=== PATIENT | female | born 1965 | race Caucasian/White ===

== ENCOUNTER 2017-06-08 19:36 | Inpatient (IN) | payer OTHER ==
[~2017-06-08] VITALS: Ht 154.9 cm; Wt 105.2 kg
[~2017-06-08 19:36] MED LIST: APAP/HYDROCODON1 T13 PO; CAPTOPRIL50 MG PO; COL100 PO; LEVOTHYROXIN0.025 M2 PO; MAC100 PO
--- NOTE | 2017-06-08 19:45 | NUR ---
DIDIG COMPLETED. AND REVIWED BY
--- NOTE | 2017-06-08 20:01 | NUR ---
RECEIVED PT FROM TRIAGE WALK-IN FROM C/C OF CHEST PAIN X3 DAYS. PT STATES THAT SHE HAS 8/10 PRESSURE CHEST PAIN RADIATING TO THE LT ARM. ALSO THE PT C/O SWOLLEN LT ARM. LF ARM COMPARED TO THE RT ARM SHOWS DIFFERENCE IN SIZE. PT PLACED ON MONITOR. LT ARM IS SWOLLEN RED AND WARM. WILL CONTINUE TO MONITOR.
--- NOTE | 2017-06-08 20:36 | NUR ---
DR PAPPAS AT BEDSIDE FOR MSE
[2017-06-08 21:10] LABS: microscopic required? YES; urine erythrocyte TRACE (NEGATIVE)
[2017-06-08 21:11] LABS: BASOPHIL % 0.3 % (0-2); PLATELET COUNT 255 x10^3mcL (130-400)
[2017-06-08 21:12] LABS: RED CELL DISTRIBUTION WIDTH 14.8 % (11.5-14.5)
[2017-06-08 21:19] LABS: CARBON DIOXIDE 29.8 mmol/L (21-32); CHLORIDE SERUM 105 mmol/L (98-107); CREATININE SERUM 0.7 mg/dL (0.6-1.0); GFR1 > 60 mL/min; GLUCOSE SERUM 117 mg/dL (74-106); SODIUM SERUM 139 mmol/L (136-145)
[2017-06-08 21:24] LABS: ALBUMIN 3.7 g/dL (3.4-5.0); ALKALINE PHOSPHATASE 92 U/L (46-116); ALT/SGPT 28 U/L (14-59); AST/SGOT 14 U/L (15-37); BILIRUBIN TOTAL 0.2 mg/dL (0.20-1.00); CHOLESTEROL 159 mg/dL (<200); CHOLESTEROL/HDL RATIO 4.5; HDL CHOLESTEROL 35 mg/dL (40-60); LIPASE 253 IU/L (73-393); TOTAL PROTEIN, SERUM 7.8 g/dL (6.4-8.2); TRIGLYCERIDES 155 mg/dL (<150)
[2017-06-08 21:41] LABS: T3 TOTAL 1.24 ng/mL
[2017-06-08 21:51] LABS: FREE T4 0.92 ng/dL (0.76-1.46); FREE THYROXINE INDEX 2.9 ug/dL (1.4-4.5); T4(THYROXINE) 8.4 ug/dL (4.7-13.3)
[2017-06-08] MEDS ORDERED: VITAMIN-D1000 IU PO (22:04)
[2017-06-08] MEDS ORDERED: NEU300 PO (22:05)
[2017-06-08] MEDS ORDERED: D-20001 TAB PO (22:05)
--- NOTE | 2017-06-08 22:30 | NUR ---
REPORT GIVEN TO BETY FOR MST ADMIT. ALL QUESTIONS AND CONCERNS ADDRESSED.
[2017-06-08 22:59] VITALS: BP 146/68
--- NOTE | 2017-06-08 23:08 | NUR ---
RECEIVED PATIENT FROM ED VIA GUERNEY, PATIENT ALERT AND ORIENTED, TELE # 29 SR, IV ACCESS TO LAC WNL, NO C/O PAIN AT THIS TIME, C/O WEAKNESS AND SWELING TO JOS, ORIENTED PATIENT TO ROOM AND SURROUNDINGS, BED RAILS UP X 2, CALL LIGHT WITHIN REACH, WILL ENDORSE CARE TO PRIMARY NURSE GEETA RUFFIN
--- NOTE | 2017-06-08 23:14 | NUR ---
PATIENT AWAKE BREATHING EASY AND NONLABOR NO SIGN OF DISTRESS NOTED. WITH ADMISSION ORDERS AND TO CARRY OUT. CALL LIGHT WITHIN REACN. WILL CONTINUE TO MONITOR.
[2017-06-09] VITALS (7 sets, daily range): BP systolic 108–146; BP diastolic 48–76
--- NOTE | 2017-06-09 05:26 | NUR ---
SLEPT AT LONG INTERVALS, DENIES CHEST DISCOMFORT THE ENTIRE SHIFT. ALL NEEDS ATTENDED.
[2017-06-09 06:41] LABS: AMPHETAMINE QUAL UR NONE DETECTED (NEG <=1000)
--- NOTE | 2017-06-09 07:35 | NUR ---
PATIENT AWAKE/ALERT LAYING IN BED NO COMPLAINTS, TECH AT BEDSIDE PERFORM CAROTID ULTRASOUND AT THIS TIME. DENIES CP, IV INTACT WITH IVF INFUSING. CALL LIGHT WITHIN REACH.
--- NOTE | 2017-06-09 08:30 | NUR ---
DR. LOCKETT ROUND WITH MEDICAL TEAM AT THIS TIME, DISCUSS POC WITH PATIENT, CONT MONITOR TROPONIN AND CARDIO CONSULT. CT CERVICAL SPINE STILL NEED TO BE DONE. PATIENT STATE MILD CHEST PAIN. ALL DUE MEDS GIVEN. NEEDS ANTICIPATED.
--- NOTE | 2017-06-09 09:52 | NUR ---
PATIENT AMBULATE WITH PT IN THE HALLWAY. PER PT PATIENT A LITTLE BIT OFF BALANCE NEED WALKER OR CANE. BACK TO BED AND CALL LIGHT WITHIN REACH.
--- NOTE | 2017-06-09 11:32 | NUR ---
PATIENT LAYING IN BED NO DISTRESS NOTED, SURGICAL TECHNOLOGIST AT BEDSIDE PERFORM ECHOCARDIOGRAM; PT'S ( DONN ) AT BEDSIDE WANT TO KNOW WHAT GOING ON WITH PATIENT; EXPLAINING POC, CARDIO WORKUP, AND TX.
--- NOTE | 2017-06-09 12:48 | NUR ---
CT CALL TO INFORM WILL DELAY TEST FOR ABOUT AN HOUR; KEEP PATIENT NPO. WILL INFORM PATIENT.
--- NOTE | 2017-06-09 13:00 | NUR ---
DAVINA AT BEDSIDE DO DM TEACHING, PER PATIENT WILL ATTEND DM CLASS AFTER D/C.
[2017-06-09 14:07] LABS: FREE T4 0.99 ng/dL (0.76-1.46); T4(THYROXINE) 8.2 ug/dL (4.7-13.3)
[2017-06-09 14:16] LABS: T3 TOTAL 1.01 ng/mL
--- NOTE | 2017-06-09 14:29 | NUR ---
PATIENT OFF FLOOR TO CT VIA WC AT THIS TIME.
--- NOTE | 2017-06-09 14:37 | NUR ---
PATIENT BACK FROM CT, NO COMPLAINTS, DUE MEDS GIVEN. ASSISTING PATIENT WITH LATE LUNCH, WARM UP FOODS PER PATIENT REQUEST. NEEDS ATTENDED. INFORM PATIENT IV SALINE LOCK PER DOCTOR ORDER. CONT TO MONITOR.
--- NOTE | 2017-06-09 16:36 | NUR ---
PATIENT LAYING IN BED NO COMPLAINTS, FAMILY MEMBERS AT BEDSIDE, BS 117 NO COVERAGE NEEDED. CONT TO MONITOR.
--- NOTE | 2017-06-09 17:12 | NUR ---
PATIENT RESTING IN BED NO COMPLAINTS, DUE MEDS GIVEN. FAMILY MEMBERS REMAIN AT BEDSIDE. NEEDS ANTICIPATED.
--- NOTE | 2017-06-09 19:45 | NUR ---
PT SEEN, RESTING IN THE BED, ALERT AND ORIENTED, DENIES HEADACHE OR DIZZINESS, BREATHING EVEN AND UNLABORED, NO SOB, LUNG SOUNDS CLEAR, ON ROOM AIR WITH NO RESP DISTRESS NOTED, ON TELE#29 NSR, DENIES CHEST PAIN, PULSES PALPABLE, EDEMA NOTED TO RFA, GENERALIZED WEAKNESS, ABD OBESE AND SOFT WITH ACTIVE BS, NO BM AT THIS TIME, DENIES ABD PAIN, VOIDING FREELY, NO DISTRESS NOTED, WILL KEEP TO MONITOR.
[2017-06-10 05:21] VITALS: BP 107/49
--- NOTE | 2017-06-10 06:14 | NUR ---
PT ASLEEP BUT EASILY AROUSABLE, SLEPT MOST OF NIGHT, NO COMPLAINS OF CHEST PAIN SINCE BEGINNING OF SHIFT, ON TELE#29 NSR, NO DISTRESS NOTED, WILL KEEP TO MONITOR.
[2017-06-10 07:07] LABS: CARBON DIOXIDE 29.8 mmol/L (21-32); CHLORIDE SERUM 103 mmol/L (98-107); CREATININE SERUM 0.8 mg/dL (0.6-1.0); GFR1 > 60 mL/min; GLUCOSE SERUM 98 mg/dL (74-106); MAGNESIUM 1.9 mg/dL (1.8-2.4); PHOSPHOROUS 3.6 mg/dL (2.5-4.9); POTASSIUM SERUM 3.6 mmol/L (3.5-5.1); SODIUM SERUM 139 mmol/L (136-145)
[2017-06-10 07:28] LABS: PLATELET COUNT 234 x10^3mcL (130-400); RED CELL DISTRIBUTION WIDTH 14.5 % (11.5-14.5)
--- NOTE | 2017-06-10 07:30 | NUR ---
PT AWAKE A/O X4 ABLE TO MAKE NEEDS KNOWN, MOSTLY UKRAINIAN SPEAKING. TELE 29 PT DENIES CP. PULSES EQUAL BILATERAL. LUNGS CTA. BOWEL TONES ACTIVE IN ALL QUADS. SKIN IS CDI. PT DENIES PAIN AT THIS TIME. IV TO THE LAC PATENT AND INFUSING. PT IS CALM AND COOPERATIVE WITH CARE.
--- NOTE | 2017-06-10 09:46 | NUR ---
PT UP OOB WALKING, STRONG STEADY GAIT.
[2017-06-10 10:15] VITALS: BP 126/64
[2017-06-10 10:16] LABS: BAND NEUTROPHIL 0 % (0-10); BASOPHIL 0 % (0-2); MONOCYTE 7 % (0-7); SEGMENTED NEUTROPHILS 38 % (37-75)
[2017-06-10 10:17] LABS: PLATELET MORPHOLOGY GIANT PLATELET SEEN
[2017-06-10] MEDS ORDERED: MAC100 PO (11:38)
[2017-06-10] MEDS ORDERED: LAC PO (11:39)
[2017-06-10] MEDS ORDERED: FOS10 PO (11:44)
[2017-06-10] MEDS ORDERED: LIPI10 PO (11:46)
[2017-06-10 12:22] VITALS: BP 126/64
[2017-06-10] MEDS ORDERED: BLOOD GLUCOSE1 EACH MC (13:03)
--- NOTE | 2017-06-10 14:19 | NUR ---
PHYSICAL THERAPY DAILY NOTES CO-SIGN All documentation done by the Security Administrator for 06/10/17 has been reviewed. I agree with the documentation. Reviewed/Co-Signed by: Alissa Aguirre PT Documentation Done by: Carmen Altman, TOOL DESIGN CHECKER
--- NOTE | 2017-06-10 14:55 | NUR ---
DISCHARGE INSTRUCTIONS GIVEN TO PT INTERPETER [id number] USED, PT MADE AWARE OF FOLLOW UP APPT WITH PCP, AND DR COLUNGA INSTRUCTED PT TO FOLLOW UP WITH PCP TO GET STRESS TEST, PT AND FAMILY VERBALIZED UNDERSTANDING. IV DC'S CATHETERTIP INTACT. TELE CLEANED AND RETURNED TO MONITOR ROOM. ALL BELONGINGS TAKEN OFF THE FLOOR WITH PT. PT ACCOMPANIED OFF THE FLOOR TO LOBBY BY CALIBRATION TECHNICIAN. PT MADE AWARE THAT PRESCRIPTIONS SENT TO PHARMACY, AND TEACHING DONE, PT VERBALIZED UNDERSTANDING.
== END 2017-06-10 15:00 | disposition home or self-care (01) | DRG 48 ==
LOC: ED 19:36 → DU 21:57
PROVIDERS: Specialist; ADMIT Family Medicine
DX: G90.8 Other disorders of autonomic nervous system (principal); Z68.41 Body mass index [BMI] 40.0-44.9, adult; I10 Essential (primary) hypertension; M94.0 Chondrocostal junction syndrome [Tietze]; N39.0 Urinary tract infection, site not specified; E03.9 Hypothyroidism, unspecified; R73.03 Prediabetes; Z53.29 Procedure and treatment not carried out because of patient's decision for other reasons; Q89.2 Congenital malformations of other endocrine glands; E78.5 Hyperlipidemia, unspecified; M06.9 Rheumatoid arthritis, unspecified; E66.9 Obesity, unspecified; M81.0 Age-related osteoporosis without current pathological fracture; Z90.49 Acquired absence of other specified parts of digestive tract; Z79.899 Other long term (current) drug therapy; Z82.49 Family history of ischemic heart disease and other diseases of the circulatory system; Z80.9 Family history of malignant neoplasm, unspecified
CPT/HCPCS: 83880; 84439; 97110-GP; 97116-GP; 97530-GP; J0696; J7030; J7050; Q0092; Q9967

== ENCOUNTER 2020-10-09 09:58 | Emergency (ER) | payer OTHER ==
[~2020-10-09] VITALS: Ht 160 cm; Wt 101.2 kg
[~2020-10-09 09:58] MED LIST changes: +BLOOD GLUCOSE1 EACH MC; +D-20001 TAB PO; +FOS10 PO; +LAC PO; +LIPI10 PO; +NEU300 PO; +VITAMIN-D1000 IU PO
[2020-10-09 10:01] VITALS: Ht 160 cm; Wt 101.2 kg
[2020-10-09 11:32] LABS: CALCIUM 8.9 mg/dL (8.5-10.1); CARBON DIOXIDE 24.3 mmol/L (21-32); CHLORIDE SERUM 103 mmol/L (98-107); CREATININE SERUM 0.8 mg/dL (0.6-1.0); GFR1 > 60 mL/min; GLUCOSE SERUM 108 mg/dL (74-106); POTASSIUM SERUM 3.3 mmol/L (3.5-5.1); SODIUM SERUM 140 mmol/L (136-145)
[2020-10-09 11:36] LABS: ALBUMIN 3.4 g/dL (3.4-5.0); ALKALINE PHOSPHATASE 81 U/L (46-116); ALT/SGPT 40 U/L (14-59); AST/SGOT 37 U/L (15-37); LIPASE 209 IU/L (73-393); TOTAL PROTEIN, SERUM 8.2 g/dL (6.4-8.2)
[2020-10-09 11:46] LABS: BASOPHIL % 0.2 % (0-2); PLATELET COUNT 180 x10^3mcL (130-400); RED CELL DISTRIBUTION WIDTH 14.3 % (11.5-14.5)
[2020-10-09 13:44] VITALS: BP 118/66
== END 2020-10-09 13:44 | disposition home or self-care (01) ==
LOC: ED 09:58
PROVIDERS: Emergency Medicine
DX: U07.1 COVID-19 (principal); B34.9 Viral infection, unspecified; I10 Essential (primary) hypertension; M19.90 Unspecified osteoarthritis, unspecified site
CPT/HCPCS: J0696; J1885; J2405; J7030

== ENCOUNTER 2020-10-11 12:30 | Inpatient (IN) | payer OTHER ==
[~2020-10-11] VITALS: Ht 157.5 cm; Wt 105.2 kg
[2020-10-11 12:51] VITALS: Ht 157.5 cm; Wt 105.2 kg
--- NOTE | 2020-10-11 13:27 | NUR ---
PT BIB SELF FROM HOME C/O NAUSEA AND VOMITING, UNABLE TO EAT OR SLEEP WELL FOR 7 DAYS. PT STATES SHE HAD POSITIVE COVID JV NOTIFIED ON 10/09/20. DENIES ANY SOB, DENIES ANY CHEST PAIN. DENIES ANY OTHER SYMPTOMS AT THIS TIME. PT OXYGEN SATURATION AT 88% ON ROOM AIR, PT PLACED ON 3L NC, RT AT BEDSIDE WITH PT AT THIS TIME. PT RESPIRATIONS EVEN AND UNLABORED. PT ABLE TO SPEAK IN FULL SENTENCES. PT PLACED IN GOWN AND FULL CM. WILL CONTINUE TO MONITOR PATIENT.
[2020-10-11 13:53] LABS: CALCIUM 8.9 mg/dL (8.5-10.1); CARBON DIOXIDE 29.3 mmol/L (21-32); CHLORIDE SERUM 100 mmol/L (98-107); CREATININE SERUM 0.9 mg/dL (0.6-1.0); GFR1 > 60 mL/min; GLUCOSE SERUM 123 mg/dL (74-106); POTASSIUM SERUM 3.4 mmol/L (3.5-5.1); SODIUM SERUM 139 mmol/L (136-145)
[2020-10-11 13:58] LABS: PLATELET COUNT 196 x10^3mcL (130-400); RED CELL DISTRIBUTION WIDTH 14.1 % (11.5-14.5)
[2020-10-11 14:00] LABS: BASOPHIL % 0 % (0-2)
[2020-10-11 14:05] LABS: ALBUMIN 3.4 g/dL (3.4-5.0); ALKALINE PHOSPHATASE 80 U/L (46-116); ALT/SGPT 60 U/L (14-59); AST/SGOT 71 U/L (15-37); BILIRUBIN TOTAL 0.4 mg/dL (0.20-1.00); LACTIC DEHYDROGENASE (LDH) 286 U/L (100-190)
[2020-10-11 14:20] LABS: TOTAL PROTEIN, SERUM 8.6 g/dL (6.4-8.2)
[2020-10-11 14:40] LABS: C REACTIVE PROTEIN 31.5 mg/dL (<=0.9)
--- NOTE | 2020-10-11 14:44 | NUR ---
PT LAYING DOWN ON HER RIGHT SIDE, VSS. NO SOB, NO DISTRESS NOTED. PT STATES SHE HAS NO PAIN, PT STATES SHE STILL FELL ALITTLE NAUSEATED BUT BETTER THAN EARLIER. NO VOMITING NOTED. CALL LIGHT WITHIN REACH. WILL CONTINUE TO MONITOR PATIENT
[2020-10-11] MEDS ORDERED: AZITHROMYCIN1 GM PO (15:27)
[2020-10-11] MEDS ORDERED: AUGMENTIN 875-1 EACH PO (15:27)
--- NOTE | 2020-10-11 15:35 | NUR ---
REPORT CALLED TO MJ RUFFIN
--- NOTE | 2020-10-11 16:15 | NUR ---
RECIEVED PATIENT ON GURNEY, A/O X4, WITHOUT ANY SIGN OF DISTRESS. PATIENT WITH N/C @4L SPO2 93%. NON PRODUCTIVE COUGH OCCATIONALLY, TELE #[address]. PT DENIES ANY NAUSEA AND PAIN AFTER BEING MEDICATED AT THE ER. PT. VOIDS FREELY WITHOUT ANY AMBULATORY ASSISTANCE. SL NOTED IN RT HAND FLUSHED WITH 2ML OF NS PATENT NO INFILTRATION. PATIENT WAS ORIENTED ON ROOM ENVIRONMENT, CALL LIGHT WITHIN REACH SIDE RAIL X2 BED IN LOWEST POSITION AND LOCKED.
[2020-10-11 16:42] VITALS: BP 139/72
--- NOTE | 2020-10-11 20:00 | NUR ---
SEEN PATIENT IN BED WITH O2 4 LITER VIA N/C, TOLERATED WELL AT THIS MOMENT,NO DISTRESS, NO C/O PAIN AT THIS TIME. NEEDS BEING MET.
[2020-10-11 21:28] VITALS: BP 111/42
--- NOTE | 2020-10-11 23:08 | NUR ---
SPOKE TO DR DANIELS AT THE STATION , REPORT PATIENT'S CONDITION , HE VERBALLY ORDER OF CONVELESENCE PLASMA 1 UNIT AND START REMDESEVIR PO, ORDER PUT IN BY ELECTROMEDICAL SERVICE ENGINEER.
[2020-10-12 05:37] VITALS: BP 141/77
--- NOTE | 2020-10-12 06:00 | NUR ---
PATIET WANT SLEEPING PILL , WILL ENDORSE TO ONCOMING NURSE.
[2020-10-12 07:27] LABS: ALKALINE PHOSPHATASE 68 U/L (46-116); ALT/SGPT 58 U/L (14-59); AST/SGOT 52 U/L (15-37); BILIRUBIN TOTAL 0.3 mg/dL (0.20-1.00); CALCIUM 9.1 mg/dL (8.5-10.1); CARBON DIOXIDE 25.2 mmol/L (21-32); CHLORIDE SERUM 104 mmol/L (98-107); CREATININE SERUM 0.7 mg/dL (0.6-1.0); GFR1 > 60 mL/min; GLUCOSE SERUM 137 mg/dL (74-106); POTASSIUM SERUM 3.7 mmol/L (3.5-5.1); SODIUM SERUM 139 mmol/L (136-145); TOTAL PROTEIN, SERUM 7.5 g/dL (6.4-8.2)
[2020-10-12 07:33] LABS: ALBUMIN 2.8 g/dL (3.4-5.0)
[2020-10-12 07:34] VITALS: BP 136/68
[2020-10-12 09:24] LABS: BASOPHIL % 0.1 % (0-2); PLATELET COUNT 190 x10^3mcL (130-400); RED CELL DISTRIBUTION WIDTH 14.3 % (11.5-14.5)
--- NOTE | 2020-10-12 10:17 | NUR ---
RECEIVED REPORT FROM BEE PRODUCER RN. PT ASSESSED, AO X4 AND WOLOF SPEAKING. PT IS ON 4L O2 VIA NC WITH SOME SHORTNESS OF BREATH. CURRENTLY SATURATING AT93% AND RUNNING SINUS RYTHM @87 ON THE MONITOR. PT AWARE THAT SHE WILL GET A PLASMA TRANSFUSION SOMETIME TODAY. NO C/O PAIN. CALL LIGHT IS WITHIN REACH AND ABLE TO USE FOR ASSISTANCE. WILL CONTINUE TO MONITOR O2 CLOSELY THROUGHOUT THE SHIFT.
--- NOTE | 2020-10-12 11:50 | NUR ---
HERE AND MADE AWARE THAT PATIENT COVID+.
[2020-10-12 12:17] VITALS: BP 115/50
--- NOTE | 2020-10-12 14:29 | NUR ---
1. Recommend NA2G diet Recommendation provided to Dr. Shipley, and Dr. Shipley acknowledged.
--- NOTE | 2020-10-12 14:29 | NUR ---
Initial Nutrition Assessment: [address] 55F Nursing trigger: N/V/D > 3 days, Poor PO > 3 days Dx: COVID, PNA PMHx: HTN, Hyperlipidemia, Osteoarthritis, hypothyroidism PSHx: cholecystectomy Labs: (10/12) WBC: 15.2H, BG 137H, AST 52H, albumin 2.8L, (10/11) Ferritin 524.3H, CRP 31.5H, *no updated lipid panel Meds: Lovenox, Synthroid, Neurontin, Zofran Diet: Regular PO intake since admission: none noted Ht: 157.48cm/62in Wt: 105.233kg/231.5lbs BMI: 42.4 Bed scale: not accessible IBW: 50kg/110lbs %IBW: 210.5% ABW: 64kg UBW: unknown Age: 55 Food Allergies: none noted Edema: none noted Last BM: 10/11 Skin: skin intact Beto: 19 Per H and P (10/11), pt is a 55-year-old female with PMH of HTN, hypothyroid, HLD presents to ER with 1 week of nausea, vomiting, abdominal pain, body aches, nonproductive cough, SOB, MCCLOUD and fevers. She was seen in ER 10/09/2020 and had tested positive for COIVID. She had CT abd/pelvis which showed streaky left lung opacities (atelectasis vs pneumonia), fatty infiltration of the liver, no bowel obstruction, obstructive uropathy, free air, free fluid, or diverticulitis. She received IVF, IV ketorolac and Zofran and was discharged home. She had persistent symptoms and returned to ER. In ER, BP 124/65, HR 72, temp 101.6 F. Pt was admitted with dx: COVID 19 infection, multifocal PNA, Acute hypoxic respiratory failure, abd pain, nausea and vomiting 2/2 COVID 19, obesity, HTN, hyperlipidemia RD Note (10/12/2020) Pt was in isolation d/t COVID infection. Per pt's RN, pt was tolerating diet with good appetite and no GI distress or chewing/swallowing difficulty. RN also mentioned that pt had most of of her breakfast this morning, and pt's PO intake was estimated to be 90%. Problem with: N/V/D/C: none per RN Problems with: Chewing: Swallowing: none per RN Current appetite: good per RN Recent wt change: unknown %wt change: unknown Vitamin/Supplement use: unknown Special diet at home: unknown Physical activity: unknown Nutrition education given (specify specific nutrition education and handout given): Written education "Hypertension Nutrition Therapy" in Divehi from [facility] was provided to pt via pt's RN. Food-drug interactions? Education given? n/a Estimated Nutritional Needs Based on adjusted body weight (64kg) Energy: 3722-0935 kcal/day (25-30 kcal/kg for viral infection and weight reduction) Protein: 76-96 g/day (1.2-1.5 g/kg for viral infection and weight reduction) Fluid: 2430-5698 mL/day (1 mL/kcal) Nutrition Diagnosis: 1. Increased energy and protein needs r/t viral infection a/e/b/ pt has COVID 19. 2. Obese r/t pathophysiological cause a/e/b pt BMI = 42.4kg/m2. Intervention 1. Recommend NA2G diet Recommendation provided to Dr. Shipley, and Dr. Shipley acknowledged. Monitor/Evaluate Goal: PO intake at least 75% of estimated needs Monitor: PO intake, Labs, GI function F/U in 3-5 days as moderate risk 10/15-
[2020-10-12 16:18] VITALS: BP 127/92
[2020-10-12 21:58] VITALS: BP 116/62
--- NOTE | 2020-10-12 22:19 | NUR ---
PT RECEIVED LYING IN BED SUPINE WITH HOB ELEVATED 30 DEGREES TALKING ON THE PHONE WITH FAMILY. A/OX4, BUT SLOW TO RESPOND. CALM AND COOPERATIVE. TELE 40, NSR HR 63, DENIES CHEST PAIN, DIZZINESS/LIGHTHEADEDNESS. RESPIRATIONS EVEN UNLABORED, LUNG SOUNDS DIMINISHED TO BILATERAL BASES, 4L NC. REPORTS INTERMITTENT SOB, BUT DENIES AT THIS TIME. ABD ROUND AND SOFT, DENIES N/V/D/CONSTIPATION, LBM 10/11, NORMAL. DENIES URINARY ISSUES. PERIPHERAL PULSES STRONG, NO EDEMA NOTED. AMBUALTORY WITH STAND BY ASSIST. SKIN INTACT. SL R HAND, PATENT, NO COMPLICATIONS TO SITE. BED IN LOWEST POSITION, SIDE RAILS X 2, CALL LIGHT WITHIN REACH.
[2020-10-13] VITALS (8 sets, daily range): BP systolic 112–144; BP diastolic 52–72
--- NOTE | 2020-10-13 00:30 | NUR ---
PT LYING IN BED IN SUPINE POSITION RESTING. PT REPORTS INTERMITTENT SOB BUT MOSTLY WITH EATING AND ACTIVITY. RESPIRATIONS CURRENTLY EVEN UNLABORED ON 4L NC, PT DENIES SOB AT THIS TIME. PT EDUCATED TO USE CALL LIGHT FOR RN ASSISTANCE SHOULD SHE BECOME SOB. PT VERBALIZED UNDERSTANDING. TELE BATTERY CHANGED. BED IN LOWEST POSITION, SIDE RAILS X 2, CALL LIGHT [place]
--- NOTE | 2020-10-13 05:12 | NUR ---
PT REMAINS A/OX4 WITH EVEN RESPIRATIONS ON 4L NC. PT REPORTS MILD SOB ON OCCASION AT REST AND SOB WITH EXERTION. TELE 40, LEADS IN PLACE, SB 58, ASYMPTOMATIC. NO C/O PAIN OR FALLS/INJURIES SUSTAINED DURING SHIFT. 1 UNIT PLASMA CURRENTLY INFUSING, TOLERATING WELL, NO S/S OF REACTION. BED IN LOWEST POSITION, SIDE RAILS X 2, CALL LGIHT WITHIN REACH
[2020-10-13 08:13] LABS: ALKALINE PHOSPHATASE 70 U/L (46-116); ALT/SGPT 129 U/L (14-59); AST/SGOT 108 U/L (15-37); BILIRUBIN DIRECT 0.13 mg/dL (0.0-0.2); CALCIUM 8.9 mg/dL (8.5-10.1); CARBON DIOXIDE 29.2 mmol/L (21-32); CHLORIDE SERUM 107 mmol/L (98-107); CREATININE SERUM 0.7 mg/dL (0.6-1.0); GFR1 > 60 mL/min; GLUCOSE SERUM 138 mg/dL (74-106); SODIUM SERUM 144 mmol/L (136-145); TOTAL PROTEIN, SERUM 7.6 g/dL (6.4-8.2)
[2020-10-13 08:14] LABS: ALBUMIN 2.6 g/dL (3.4-5.0)
[2020-10-13 08:34] LABS: BASOPHIL % 0.1 % (0-2); PLATELET COUNT 240 x10^3mcL (130-400); RED CELL DISTRIBUTION WIDTH 14.2 % (11.5-14.5)
--- NOTE | 2020-10-13 10:20 | NUR ---
RECEIVED PT FROM SIZING MACHINE AND DRIER OPERATOR RN. ASSESSED PT, ON 4L NC AND BREATHING IS EVEN. PT REPORTS SOB AND SORE THROAT WHEN SHE COUGHS. NO C/O PAIN. PT SITTING UP IN BED AND EATING BREAKFAST. CALL LIGHT IS WITHIN REACH. WILL CONTINUE TO MONITOR PT.
--- NOTE | 2020-10-13 18:48 | NUR ---
PT C/O NAUSEA AND COUGH DURING THE DAY. COUGH MEDS AND ZOFRAN GIVEN GIVEN X1 DURING THIS SHIFT. NO C/OPAIN. ALL NEEDS ATTENDED TO.
--- NOTE | 2020-10-13 20:21 | NUR ---
PT RECEIVED LYING IN SUPINE POSITION WATCHING TV. A/OX4, MOTOR STRENGTH 4/5 BUE/BLE, CALM AND COOPERATIVE. TELE 40, LEADS IN PLACE, HR 72, DENIES CHEST PAIN, LIGHTHEADEDNESS/DIZZINESS. PERIPHERAL PULSES STRING, NO EDEMA NOTED. RESPIRATIONS EVEN UNLABORED, DIMINISHED LUNG BASES, 4L NC, DENIES SOB AT THIS TIME BUT REPORTS SOB WITH ACTIVITY AND ON OCCASION AT REST. DRY COUGH NOTED. ABD SOFT AND ROUND, LBM 10/11 LOOSE. REPORTS OCACSIONAL NAUSEA, NONE AT THIS TIME. NO URINARY ISSUES. AMBULATORY WITH STAND BY ASSIST, PT ANXIOUS OF BECOMING SOB AND TIRED WHEN AMBULATING. SKIN INTACT. SL LFA 22G, PATENT, NO COMPLICATIONS TO SITE. BED IN LOWEST POSITOIN, SIDE RAILS X 2, CALL LIGHT WIHTIN REACH,
--- NOTE | 2020-10-14 01:08 | NUR ---
PT SLEEPING ON R SIDE, EASILY AROUSABLE TO VERBAL STIMULI. PT OFF TELE, ELECTRODES CHANGED, SR HR 58. NO RESPIRATORY DISTRESS NOTED, 4L NC. DENIES PAIN. ALL NEEDS MET AT THIS TIME. BED IN LOWEST POSITION, SIDE RAILS X 2, CALL LIGHT WITHIN REACH.
[2020-10-14 05:05] VITALS: BP 133/60
--- NOTE | 2020-10-14 06:17 | NUR ---
PT SLEEPING IN BED ON R SIDE. PT EASILY AROUSABLE TO VERBAL STIMULI. TELE 40, LEADS IN PLACE, SR-SB, PT NOTED TO BE IN 50S DOWN TO 40S WHEN SLEEPING, ASYMPTOMATIC. RESPIRATIONS EVEN UNLABORED, DENIES SOB, 4L NC. NO C/O PAIN OR FALLS/INJURIES SUSTAINED DURING SHIFT. SL LFA, NO COMPLICATIONS TO SITE. PT PROVIDED WITH CLEAN UNDERWEAR, PADS, TEA, AND WATER. ALL NEEDS MET AT THIS TIME. BED IN LOWEST POSITOIN, SIDE RAILS X2, CLAL LIGHT WITHIN REACH
[2020-10-14 08:01] LABS: BASOPHIL % 1.3 % (0-2); PLATELET COUNT 316 x10^3mcL (130-400); RED CELL DISTRIBUTION WIDTH 13.8 % (11.5-14.5)
[2020-10-14 08:07] LABS: ALKALINE PHOSPHATASE 67 U/L (46-116); ALT/SGPT 142 U/L (14-59); AST/SGOT 88 U/L (15-37); BILIRUBIN DIRECT 0.12 mg/dL (0.0-0.2); BILIRUBIN TOTAL 0.29 mg/dL (0.20-1.00); CALCIUM 9.1 mg/dL (8.5-10.1); CARBON DIOXIDE 26.4 mmol/L (21-32); CHLORIDE SERUM 107 mmol/L (98-107); CREATININE SERUM 0.8 mg/dL (0.6-1.0); GFR1 > 60 mL/min; GLUCOSE SERUM 178 mg/dL (74-106); POTASSIUM SERUM 3.8 mmol/L (3.5-5.1); SODIUM SERUM 145 mmol/L (136-145); TOTAL PROTEIN, SERUM 7.4 g/dL (6.4-8.2)
[2020-10-14 08:19] LABS: ALBUMIN 2.6 g/dL (3.4-5.0)
--- NOTE | 2020-10-14 08:34 | NUR ---
RECEIVED PATIENT FROM BAG REPAIRER RN. PATIENT SITTING UP IN BED, AWAKE AND ALERT. PATIENT ON 4L NC O2 SAT 93%. NO SOB OR RESPIRATORY DISTRESS AT THIS TIME. IV TO LFA 22G C/D/I. COMFORT AND SAFETY MEASURES IN PLACE. CALL LIGHT WITHIN REACH. WILL CONTINUE TO MONITOR.
[2020-10-14 08:53] VITALS: BP 141/69
[2020-10-14 11:44] VITALS: BP 117/54
--- NOTE | 2020-10-14 13:04 | NUR ---
IV TO LFA 22G INFILTRATED. IV DC WITH CATHETER INTACT. IV TO RH 20G STARTED, C/D/I, PATENT AND SALINE LOCKED. CALL LIGHT WITHIN REACH, WILL CONTINUE TO MONITOR.
--- NOTE | 2020-10-14 17:16 | NUR ---
PATIENT ON 4L NC, BREATHING REGULAR AND UNLABORED. PT IN PRONE POSITION TALKING TO FAMILY ON PHONE. NO C/O PAIN OR SOB AT THIS TIME. REMDESIVIR INFUSING PER ORDER. CALL LIGHT WITHIN REACH. WILL CONTINUE WITH PLAN OF CARE.
[2020-10-14 17:44] VITALS: BP 123/48
--- NOTE | 2020-10-14 18:58 | NUR ---
PATIENT SITTING UP IN BED EATING DINNER. NO C/O PAIN OR SOB AT THIS TIME. BREATHING REGULAR AND UNLABORED ON 4L NC. TELE #40. IV TO RH 20G C/D/I AND PATENT. SAFETY AND COMFORT MEASURES IN PLACE. CALL LIGHT WITHIN REACH. WILL ENDORSE TO WIRE WALKER RN.
--- NOTE | 2020-10-14 20:06 | NUR ---
PT RECIEVED AAO REG RESP PT ON 4L N/C SAT 96%,HOB DIMINISHED TO FRANCES LOWER BASES,ABDO IS SOFT WITH ACTIVE BOWEL SOUNDS,IV INFUSING WELL WITH THE SITE PATENT AND INTACT,PT ON TELE MONITOR AND IN NSR NO ECTOPY OR CHEST PAIN AT THIS TIME.BED IN THE LOW POSITION AND LOCKED,CALL LIGHT EASY REACHED AND WILL CONTINUE TO MONITOR.
[2020-10-14 22:25] VITALS: BP 123/60
--- NOTE | 2020-10-15 02:06 | NUR ---
PT WAS HELP TO THE BATHROOM AND MADE COMFORTABLE IN BED,WILL CONTINUE TO MONITOR.
[2020-10-15 05:49] VITALS: BP 140/63
--- NOTE | 2020-10-15 06:22 | NUR ---
PT HAD A RESTING NIGHT NO CHANGE AT THIS TIME,WILL CONTINUE TO MONITOR.
[2020-10-15 07:51] LABS: ALKALINE PHOSPHATASE 64 U/L (46-116); ALT/SGPT 159 U/L (14-59); AST/SGOT 63 U/L (15-37); BILIRUBIN DIRECT 0.15 mg/dL (0.0-0.2); BILIRUBIN TOTAL 0.3 mg/dL (0.20-1.00); CALCIUM 8.7 mg/dL (8.5-10.1); CARBON DIOXIDE 26.1 mmol/L (21-32); CHLORIDE SERUM 103 mmol/L (98-107); CREATININE SERUM 0.7 mg/dL (0.6-1.0); GFR1 > 60 mL/min; GLUCOSE SERUM 149 mg/dL (74-106); POTASSIUM SERUM 3.7 mmol/L (3.5-5.1); SODIUM SERUM 138 mmol/L (136-145)
[2020-10-15 07:53] LABS: ALBUMIN 2.6 g/dL (3.4-5.0)
[2020-10-15 08:30] VITALS: BP 125/66
[2020-10-15 09:52] LABS: PLATELET COUNT 329 x10^3mcL (130-400); RED CELL DISTRIBUTION WIDTH 13.5 % (11.5-14.5)
[2020-10-15 10:06] LABS: BASOPHIL % 2.3 % (0-2)
--- NOTE | 2020-10-15 10:49 | NUR ---
PATIENT LYING SUPINE IN BED, AWAKE AND ALERT. ON 4L NC. REQUESTED FOR AMENITIES. IV TO RH 20G SALINE LOCKED. ALL CONCERNS AND QUESTIONS ADDRESSED. CALL LIGHT WITHIN REACH. WILL CONTINUE TO MONITOR.
[2020-10-15 12:17] VITALS: BP 106/65; BP 111/80
--- NOTE | 2020-10-15 13:30 | NUR ---
RECEIVED BEDSIDE REPORT FROM DAY RN. PT IN BED AWAKE RESTING. ALL NEEDS MEET AT THIS TIME. CALL LIGHT WITHIN REACH. BED LOCKED IN LOWEST POSITION. WILL CONTINUE TO MONITOR.
[2020-10-15 16:16] VITALS: BP 107/70
--- NOTE | 2020-10-15 19:56 | NUR ---
PT RECIEVED AAO REG RESP NO SOB ON 4L N/C SAT 96%,HOB,ABDO IS SOFT WITH ACTIVE BOWEL SOUNDS,PT HAS HL TO THE RT HAND SITE PATENT AD INTACT,BED IN THE LOW POSITION AND LOCKED,KEPT CLEAN AND DRY TO TOUCH,CALL LIGHT EASY REACHED AND WILL CONTINUE TO MONITOR.
[2020-10-15 21:32] VITALS: BP 121/61
[2020-10-16 06:13] VITALS: BP 104/54
--- NOTE | 2020-10-16 06:36 | NUR ---
PT HAD A RESTING NIGHT NO CHANGE AT THIS TIME,WILL CONTINUE TO MONITOR.
--- NOTE | 2020-10-16 07:25 | NUR ---
RECEIVED REPORT FROM DIETARY SERVICE AIDE RN. PT IN BED AWAKE, ALERT, ABLE TO MAKE NEEDS KNOWN. ON DROPLET PRECAUTION FOR COVID19. ON 2LPM VIA NC 97%02 SAT, DENIES SOB. ON TELE 40, DENIES CHEST PAIN/PRESSURE. IV SITE TO SALINE LOCK. DENIES PAIN OR DISCOMFORT AT THIS TIME. BED IN LOWEST POSITION. CALL LIGHT WITHIN REACH. WILL CONTINUE TO MONITOR.
[2020-10-16 07:33] LABS: RED CELL DISTRIBUTION WIDTH 13.5 % (11.5-14.5)
[2020-10-16 08:36] LABS: ALKALINE PHOSPHATASE 60 U/L (46-116); ALT/SGPT 149 U/L (14-59); AST/SGOT 39 U/L (15-37); BILIRUBIN TOTAL 0.35 mg/dL (0.20-1.00); CALCIUM 8.8 mg/dL (8.5-10.1); CARBON DIOXIDE 25.8 mmol/L (21-32); CHLORIDE SERUM 105 mmol/L (98-107); CREATININE SERUM 0.7 mg/dL (0.6-1.0); GFR1 > 60 mL/min; GLUCOSE SERUM 176 mg/dL (74-106); POTASSIUM SERUM 3.6 mmol/L (3.5-5.1); SODIUM SERUM 141 mmol/L (136-145)
[2020-10-16 08:37] LABS: ALBUMIN 2.7 g/dL (3.4-5.0)
[2020-10-16 09:03] VITALS: BP 116/49
[2020-10-16 10:34] LABS: PLATELET COUNT 389 x10^3mcL (130-400)
[2020-10-16 11:55] VITALS: BP 121/67
--- NOTE | 2020-10-16 14:48 | NUR ---
Follow-up Nutrition Assessment: Dx: COVID, PNA PMHx: HTN, Hyperlipidemia, Osteoarthritis, hypothyroidism Labs: (10/16/20): Glu: 176, ALT/AST: 39/149H, alb: 2.7 Meds: Lovenox, Synthroid, Neurontin, Zofran, Remdesivir, Decadron, KCL Diet: Regular PO intake: 80-100% since last assessment on 10/12 Weights: (10/11/20) 105.3kg, no weights since then, unable to access bed scale Edema: no edema noted Last BM: no BM since admission Skin: skin intact Beto: [address] (10/12/2020) Pt was in isolation d/t COVID infection. Per pt's RN, pt was tolerating diet with good appetite and no GI distress or chewing/swallowing difficulty. RN also mentioned that pt had most of of her breakfast this morning, and pt's PO intake was estimated to be 90%. Current RD note: Unable to reach patient on the phone, po intakes very good and per nursing no nutritional concerns at this time, per MD note pt will continue on ABX for PNA and O2 as needed. Estimated Nutritional Needs Based on adjusted body weight (64kg) Energy: 7412-7975 kcal/day (25-30 kcal/kg for viral infection and weight reduction) Protein: 76-96 g/day (1.2-1.5 g/kg for viral infection and weight reduction) Fluid: 8310-6518 mL/day (1 mL/kcal) Nutrition Diagnosis: 1. Increased energy and protein needs r/t viral infection a/e/b/ pt has COVID 19 (ongoing). 2. Obese r/t pathophysiological cause a/e/b pt BMI = 42.4kg/m2 (ongoing). Intervention 1. Continue current diet. Patient not on blood pressure medications and blood pressure well-controlled. Monitor/Evaluate Goal: PO intake at least 75% of estimated needs Monitor: PO intake, Labs, GI function F/U in 3-5 days as moderate risk 10/19-.
[2020-10-16 15:41] VITALS: BP 106/46
--- NOTE | 2020-10-16 19:20 | NUR ---
PT IN BED AWAKE AND ALERT. ON DROPLET PRECAUTION FOR COVID19, ON 2LPM VIA NC, NO ACUTE RESPIRATORY DISTRESS. IV SITE TO WITH ONGOING SCHEDULED REMDESIVIR. ON TELE 40, DENIES CHEST PAIN/PRESSURE. NO PAIN OR DISCOMFORT AT THIS TIME. CALL LIGHT WITHIN REACH. ENDORSE CARE TO INCOMING RN.
[2020-10-16 20:06] VITALS: BP 111/53
--- NOTE | 2020-10-16 20:13 | NUR ---
PT RECIEVED AAO REG RESP NO SOB ON 2L N/C SAT 95%,ABDO IS SOFT WITH ACTIVE BOWEL SOUNDS,PT HAS HL TO THE RT HAND SITE INTACT,HOB,BED IN THE LOW POSITION AND LOCKED,KEPT CLEAN AND DRY TO TOUCH AND WILL CONTINUE TO MONITOR.
--- NOTE | 2020-10-17 02:56 | NUR ---
PT SLEEPING SOUNDLY AND WILL CONTINUE TO MONITOR.
[2020-10-17 04:48] VITALS: BP 123/65
--- NOTE | 2020-10-17 06:10 | NUR ---
PT HAD A RESTING NIGHT NO CHANGE AT THIS TIME,WILL CONTINUE TO MONITOR.
--- NOTE | 2020-10-17 08:00 | NUR ---
PT RECIEVED AAO REG RESP NO SOB ON 2L N/C SAT 96%,HOB,ABDO IS SOFT WITH ACTIVE BOWEL SOUNDS,PT HAS HL TO THE LT HAND SITE PATENT BUT NOTICE DISCOLORATION AT THE IV SITE,ASSESS NO SWOLLEN OR INFECTED,WANTED TO TAKE IT OUT AND RESART A NEW ONE BUT PATIENT REFUSED IT,SAYS WILL BE GOING HOME TODAY,CALL LIGHT EASY REACHED AND WILL CONTINUE TO MONITOR.
[2020-10-17 08:19] VITALS: BP 122/58
--- NOTE | 2020-10-17 11:21 | NUR ---
ENDORSEC TO FOLLOW UP CARE,WILL CONTINUE TO MONITOR.
[2020-10-17 11:29] VITALS: BP 115/64
--- NOTE | 2020-10-17 11:30 | NUR ---
RECEIVED REPORT FROM OUTGOING NURSE ASSUMING PT CARE RESPONSABILITY. CALL LIGHT IN REACH NEEDS ATTENDED TO.
--- NOTE | 2020-10-17 13:55 | NUR ---
RECEIVED PT. FROM LUCIEN (PAPERBOARD BOX MAKER). WILL CONTINUE TO MONITOR.
--- NOTE | 2020-10-17 14:00 | NUR ---
NOTICED PT. ON O2 AT 2L NC AT THIS TIME. O2 SAT. RANGING BETWEEN 94 TO 97%.
--- NOTE | 2020-10-17 15:00 | NUR ---
OXYGEN TANK WAS DELIVERED TO PT.'S ROOM. PT. WAS MADE AWARE OF THE ABOVE.
[2020-10-17 15:48] VITALS: BP 118/66
--- NOTE | 2020-10-17 19:23 | NUR ---
REMAINS IN STABLE CONDITION AT THIS TIME. WILL CONTINUE TO MONITOR.
--- NOTE | 2020-10-17 19:30 | NUR ---
RECEIVED REPORT FROM LALY MOLINA AND QUESTIONS ALL ANSWERED AND ASSUMED CARE AND TREATMENT.
--- NOTE | 2020-10-17 20:00 | NUR ---
RECEIVED PT LAYING IN BED AWAKE AND COOPERATIVE.ALERT AND ORIENTED X4 W/ GENERAL WEAKNESS. NO LOSS OF APPITITE.BREATH SOUND DIMINISHED BILAT.NO RESP.DIFFICULTY NOTED. VOIDED FREELY.VITAL STABLE.
[2020-10-17 20:47] VITALS: BP 104/56
--- NOTE | 2020-10-18 01:08 | NUR ---
SLEEP AT LONG INTERVALS.TURNED TO SIDES AD MELISSA. ENCOURAGED TO TURNED TO SIDES MORE PRONING PPOSITION.WENT TO SLEEP AFTER. W/ NC AT 2L/MIN.
[2020-10-18 05:45] VITALS: BP 123/49
[2020-10-18 08:39] VITALS: BP 114/64
[2020-10-18] MEDS ORDERED: PROAIR RES117 MCG/Ac INH (10:29)
[2020-10-18] MEDS ORDERED: ELIQUIS5 MG PO (10:29)
[2020-10-18 12:11] VITALS: BP 110/63
--- NOTE | 2020-10-18 14:10 | NUR ---
RECEIVED PT. IN BED AWAKE & ALERT. DENIES PAIN OR DISCOMFORT. ABLE TO AMBULATE AND TURN SELF FREELY INBED. RESP EVEN AND UNLABORED, NO SIGNS OF DISTRESS AT THIS TIME.
[2020-10-18 15:27] VITALS: BP 112/65
[2020-10-18 15:30] VITALS: BP 116/63
--- NOTE | 2020-10-18 20:00 | NUR ---
PATIENT IS A/O X4. BREATHING E/U ON 2 L NC. DENIES SOB. NO DISTRESS NOTED. PATIENT IS TO BE D/C HOME. PATIENT HAS SIGNED D/C PAPERWORK. PATIENT ALSO HAS D/C PACKET WITH HER AND EXPLAINED TO HER ABOUT PICKING UP MEDICATION AND COMING BACK FOR A F/U VISIT. PATIENT WAS ALSO TAUGHT HOW TO USE PORTABLE O2 TANK. PATIENTS TELE, ID BANDS AND IV WERE REMOVED. TELE TAKEN BACK TO MEDICAL RECORD TECHNICIAN. PATIENT CHANGED INTO PERSONAL CLOTHING, AMBULATED DOWN TO LOBBY AND ASSISTED INTO HER FAMILY CAR. PATIENTS TWO FAMILY MEMBERS PICKED HER UP. ALL HER BELONGINGS WERE TAKEN UPON LEAVING.
== END 2020-10-18 20:23 | disposition home or self-care (01) | DRG 137 ==
LOC: ED 12:30 → DU 14:40
PROVIDERS: Emergency Medicine; ADMIT Internal Medicine; ATTEND Internal Medicine
PROC: XW033E5 Introduction of Remdesivir Anti-infective into Peripheral Vein, Percutaneous Approach, New Technology Group 5 (ICD-10-PCS; principal; 2020-10-12)
PROC: XW13325 Transfusion of Convalescent Plasma (Nonautologous) into Peripheral Vein, Percutaneous Approach, New Technology Group 5 (ICD-10-PCS; 2020-10-13)
DX: U07.1 COVID-19 (principal); J96.01 Acute respiratory failure with hypoxia; J12.89 Other viral pneumonia; I10 Essential (primary) hypertension; Z90.49 Acquired absence of other specified parts of digestive tract; E78.5 Hyperlipidemia, unspecified; E66.9 Obesity, unspecified; E03.9 Hypothyroidism, unspecified; Z68.41 Body mass index [BMI] 40.0-44.9, adult
CPT/HCPCS: 36600; 82962; 83880; 85378; G0378; J0696; J1100; J1650; J1885; J2405; J7030; J7050; J7060; U0003